=== PATIENT | female | born 1985 | race Caucasian/White ===

== ENCOUNTER 2017-01-10 15:19 | Inpatient (IN) | payer OTHER ==
[~2017-01-10] VITALS: Ht 165.1 cm; Wt 88.0 kg
[~2017-01-10 15:19] MED LIST: IBUP600 PO; OXYC1SOL5 PO; PERI8.6T PO
[2017-03-20] VITALS (25 sets, daily range): BP systolic 94–111; BP diastolic 56–71; PULSE 56–78; RESP 15–20; TEMP 95.9–97.9; O2SAT 96–97
[2017-03-20] MEDS ORDERED: ceFAZolin 2 GM PREMIX 50 ML IV SCH (06:30)
[2017-03-20] MEDS ORDERED: CITRIC ACID-SODIUM CITRATE LIQ 30 ML UDC PO SCH (06:30)
[2017-03-20] MEDS ORDERED: ceFAZolin 1,000 MG/NS 100 ML IV SCH ×2 (06:30)
[2017-03-20] MEDS ORDERED: LACTATED RINGER'S 1000 ML IV ONE (06:30)
[2017-03-20] MEDS ORDERED: LACTATED RINGER'S 1000 ML IV SCH (06:30)
[2017-03-20] MEDS ORDERED: LIDOCAINE HCL 1% 50 ML VIAL ONE (06:40)
[2017-03-20 06:52] LABS: AUTOMATED NEUTROPHIL # 3.6 TH/MM3 (1.8-7.7); BASOPHIL % 0.5 % (0.0-2.0); EOSINOPHIL # 0.1 TH/MM3 (0-0.4); EOSINOPHIL % 1.3 % (0.0-4.0); HEMATOCRIT 30.6 % (35.0-46.0); HEMO FLAGS DIFF FINAL; LYMPH % 26.5 % (9.0-44.0); LYMPHOCYTE # 1.5 TH/MM3 (1.0-4.8); MEAN CELL VOLUME 81.7 FL (80.0-100.0); MEAN CORPUSCULAR HEMOGLOBIN 28.5 PG (27.0-34.0); MEAN CORPUSCULAR HGB CONC 34.9 % (32.0-36.0); MONO % 8.6 % (0.0-8.0); NEUT % 63.1 % (16.0-70.0); PLATELET COUNT 148 TH/MM3 (150-450); RED BLOOD COUNT 3.75 MIL/MM3 (4.00-5.30); RED CELL DISTRIBUTION WIDTH 14.9 % (11.6-17.2); WHITE BLOOD COUNT 5.7 TH/MM3 (4.0-11.0)
[2017-03-20] MEDS ORDERED: IBUP-232 PO (07:17)
[2017-03-20] MEDS ORDERED: PERC5TAB12 PO (07:17)
[2017-03-20] MEDS ORDERED: PERI8.6T PO (07:17)
--- NOTE | 2017-03-20 07:28 | HHI.HP ---
HPI Chief Complaint scheduled repeat at term Date Seen: Mar 20, 2017 Time Seen: 07:10 Travel History International Travel<30 Days: No Contact w/Intl Traveler<30Days: No Known Affected Area: No History of Present Illness HPI 31 yo with IUP at 39wks here today for scheduled repeat at term. no complications of , pain 1/10 pressure, no VB, LOF, or ctx. + FM. Para: 1 : 2 Miscarriage: 0 : 0 History Past Medical History Narrative Medical denies Obstetric History Obstetric History G1 = FT CD FTP 10/2015 Past Surgical History Narrative Surgical x 1 (10/2015) Family History Family History: Negative Social History Alcohol Use: No Tobacco Use: No Substance Abuse: No Allergies-Medications (Allergen,Severity, Reaction): Coded Allergies: Dynacin (Verified Allergy, Mild, RASH, 11/02/15) Uncoded Allergies: NICKEL (Allergy, Mild, 11/02/15) SKIN IRRATION Home Meds Active Scripts Sennosides-Docusate Sodium (Sylvia-Colace)8.6-50 Mg Tab1 Tab PO BID PRN ( Constipation) #28 TAB Ref 1 Prov:Elena Valenzuela MD 03/20/17 Oxycodone-Acetaminophen (Percocet)5-325 mg Tab1 Tab PO Q6H PRN (PAIN) #30 TAB Ref 0 Prov:Elena Valenzuela MD 03/20/17 Ibuprofen 600 Mg Ops494 Mg PO Q6H PRN (PAIN) #30 TAB Ref 1 Prov:Elena Valenzuela MD 03/20/17 Discontinued Scripts Sennosides-Docusate Sodium (Sylvia-Colace 8.6-50 mg)1 Tab Tab2 Tab PO Q12H #30 TAB Prov:Teri Hollingsworth MD 11/04/15 Oxycodone W/ Acetaminophen (Oxycodone/Acetaminophen 5-325 mg/5Ml)5 mg/325 mg Tab1 Tab PO Q4H PRN (PAIN SCALE 3 TO 5) #30 TAB Prov:Teri Hollingsworth MD 11/04/15 Ibuprofen (Motrin 600 Mg Tab)600 Mg Ksq021 Mg PO Q6H PRN ( CRAMPING) # 30 TAB Prov:Teri Hollingsworth MD 11/04/15 Review of Systems General / Constitutional: Weight Gain (c/w ), No: Fever, Chills, Other Eyes: No: Diploplia, Blurred Vision, Visual changes, Pain, Photophobia HENT: No: Headaches, Vertigo, Lightheadedness Cardiovascular: No: Irregular Rhythm, Chest Pain or Discomfort, Palpitations, Tachycardia, Syncope, Varicosities, Edema, Cyanosis Respiratory: No: Cough, Short of Breath, Other Gastrointestinal: No: Nausea, Vomiting, Diarrhea Genitourinary: Pelvic Pain (pressure), No: Decreased Urinary Output, Oliguria Musculoskeletal: No: Limited ROM, Weakness, Cramping, Edema, Pain Skin: No Rash, No Itching, No Dryness, No Lumps, No Change in Pigmentation, No Change in Nails, No Alopecia, No Lesions Neurologic: No: Weakness, Dizziness, Syncope, Focal Abnormalities, Coordination Problem, Headache, Slurred Speech, Seizures Psychiatric: No: Depression, Suicidal Ideations, Homicidal Ideation Endocrine: No: Heat Intolerance, Cold Intolerance, Polydipsia, Polyuria, Other Physical Exam Vital Signs Date Time Temp Pulse Resp B/P Pulse Ox O2 Delivery O2 Flow Rate FiO2 03/20/17 06:21 97.9 18 03/20/17 06:20 78 108/71 Narrative GENERAL: Well-nourished, well-developed patient. SKIN: Warm and dry. HEAD: Normocephalic and atraumatic. EYES: No scleral icterus. No injection or drainage. ENT: No nasal drainage noted. Mucous membranes pink. Airway patent. NECK: Supple, trachea midline. No JVD. CARDIOVASCULAR: Regular rate and rhythm without murmurs, gallops, or rubs. RESPIRATORY: Breath sounds equal bilaterally. No accessory muscle use. BREASTS: deferred. ABDOMEN/GI: Abdomen soft, non-tender, bowel sounds present, no rebound, no guarding Gravid to [39] weeks size Fundal Height: [37] GENITOURINARY: deferred FHT's: Category: I tracing EXTREMITIES: No cyanosis or edema. BACK: Nontender without obvious deformity. No CVA tenderness. NEUROLOGICAL: Awake and alert. Motor and sensory grossly within normal limits. Five out of 5 muscle strength in all muscle groups. Normal speech. Data Data Vital Signs Reviewed: Yes Orders Admit To Inpatient (03/20/17 ) Vital Signs (Adult) .ON ADMISSION (03/20/17 06:05) Activity Oob Ad Genoveva (03/20/17 06:05) Heart (03/20/17 06:05) Urinary Catheter Management JARROD.Q8H (03/20/17 06:05) ^ Preps (03/20/17 06:05) Scd / Anish / Foot Pump JARROD.QSHIFT (03/20/17 06:05) ^ Ultrasound For Locatio (03/20/17 06:05) Diet Npo (03/20/17 Breakfast) Type And Screen (03/20/17 06:05) Complete Blood Count With Diff (03/20/17 06:05) Urinalysis - C+S If Indicated (03/20/17 06:05) Lactated Ringer's 1000 Ml Inj (Lr 1000 M (03/20/17 06:30) Lactated Ringer's 1000 Ml Inj (Lr 1000 M (03/20/17 06:30) Citric Acid-Sodium Citrate Liq (Bicitra (03/20/17 06:30) Cefazolin 2 Gm Premix (Ancef 2 Gm Premix (03/20/17 06:30) Lidocaine 1% Inj (50 Ml) (Xylocaine 1% I (03/20/17 06:40) Labs Laboratory Tests Test 03/20/17 06:30 White Blood Count 5.7 Red Blood Count 3.75 Hemoglobin 10.7 Hematocrit 30.6 Mean Corpuscular Volume 81.7 Mean Corpuscular Hemoglobin 28.5 Mean Corpuscular Hemoglobin 34.9 Concent Red Cell Distribution Width 14.9 Platelet Count 148 Mean Platelet Volume 9.9 Neutrophils (%) (Auto) 63.1 Lymphocytes (%) (Auto) 26.5 Monocytes (%) (Auto) 8.6 Eosinophils (%) (Auto) 1.3 Basophils (%) (Auto) 0.5 Neutrophils # (Auto) 3.6 Lymphocytes # (Auto) 1.5 Monocytes # (Auto) 0.5 Eosinophils # (Auto) 0.1 Basophils # (Auto) 0.0 CBC Comment DIFF FINAL Differential Comment Blood Type A POSITIVE Assessment/Plan Problem List: (1) Term (2) History of delivery, currently Assessment and Plan 31 yo with IUP at 39 wks by 1st trimester sono, presents for scheduled repeat 1) repeat : r/b/a of procedure d/w pt, consents signed, AQA 2) status: vertex, male, no complications throughout Discharge Planning routine 2-3 days postop Elena Valenzuela MD Mar 20, 2017 07:28
[2017-03-20 07:31] LABS: BACTERIA, URINE OCC /hpf; BLOOD, URINE NEG (NEG); COMMENT (UR) CULTURE INDICATED; CULTURE IF INDICATED CULTURE INDICATED; GLUCOSE,URINE NEG (NEG); KETONE, URINE NEG (NEG); MUCUS URINE FEW /lpf (OCC); NITRITE,URINE NEG (NEG); SQUAMOUS EPITHELIAL CELL URINE 18 /hpf (0-5); URINE COLOR YELLOW (YELLW/STRAW)
[2017-03-20] MEDS ORDERED: OXYTOCIN 10 UNIT/ML AMP ONE (07:34)
--- NOTE | 2017-03-20 08:18 | PD.OB.DELI ---
Procedure Note Section Procedure Pre Op Diagnosis: (1) Term (2) History of delivery, currently Post Op Diagnosis: (1) Term (2) S/P repeat low transverse Performed by Elena Valenzuela Procedure: Repeat Low Transverse Sec Indication for delivery: Desired elective repeat Informed consent obtained: For anesthesia, For procedure Confirmed correct: Patient, Procedure, Site, Time-out taken Anesthesia: Spinal Medication prior to procedure: As documented in eMAR Monitoring during procedure: Blood pressure monitoring, athletic monitor, Pulse oximetry Urinary catheter: Inserted using sterile technique, To dependent drainage, ml urine output (50) Sterile preparation: Duraprep, In usual fashion, With drapes to expose affected area Position: Supine with wedge to right side Operative Features Skin Incision: Pfannenstiel Uterine Incision: Low transverse w/knife / scissors Membranes Ruptured: Artificially, Amount of liquid (moderate), Appearance of fluid (clear) Presentation: Occiput anterior Delivery of : Uneventful : Male One Minute : 9 Five Minute : 9 Weight: 7#11oz Status of : Viable, Cord blood, Nursery present Placenta delivered: Intact Medications: Antibiotics (standard preop Ancef 2g) Estimated blood loss: 600 mL Procedure tolerated: Well Maternal Condition: Stable Condition: Stable Procedure in detail see dictated op note Elena Valenzuela MD Mar 20, 2017 08:18
[2017-03-20] MEDS ORDERED: MORPHINE SULFATE PF 5 MG/10 ML VIAL ONE (08:20)
[2017-03-20] MEDS ORDERED: ACETAMINOPHEN 1000 MG/100 ML VIAL IV ONE ×2 (08:20→08:30)
[2017-03-20] MEDS ORDERED: ONDANSETRON HCL 4 MG/2 ML VIAL ONE (08:20)
--- NOTE | 2017-03-20 08:25 | HHI.DCPOC ---
Discharge Care Plan Diagnosis: (1) S/P repeat low transverse Your Health Problems Are: delivery Report Symptoms to Your Doctor -Temperature above 100.5 degrees -Redness, of incision or excessive or foul smelling drainage -Unusual pain or calf pain -Increased vaginal bleeding -Painful or difficulty urinating -Feelings of extreme sadness or anxiety after 2 weeks Goals to Promote Your Health * To prevent worsening of your condition and complications * To maintain your health at the optimal level Directions to Meet Your Goals Take your medications as prescribed Follow your dietary instruction Follow activity as directed Ensure plenty of rest for recovery Drink fluids for hydration Keep your appointments as scheduled Take your immunizations and boosters as scheduled If your symptoms worsen call your PCP, if no PCP go to Urgent Care Center or Emergency Room Smoking is Dangerous to Your Health. Avoid second hand smoke Call the 24-hour crisis hotline for domestic abuse at Elena Valenzuela MD Mar 20, 2017 08:25
[2017-03-20] MEDS ORDERED: oxyCODONE/ACETAMINOPHEN 5 MG/325 MG TAB PO PRN (08:30)
[2017-03-20] MEDS ORDERED: SODIUM CHLORIDE 0.9% FLUSH 10 ML FLUSH IV FLUSH PRN (08:30)
[2017-03-20] MEDS ORDERED: SIMETHICONE 80 MG CHEWABLE TAB PO PRN (08:30)
[2017-03-20] MEDS ORDERED: ACETAMINOPHEN 325 MG TAB PO PRN (08:30)
[2017-03-20] MEDS ORDERED: KETOROLAC TROMETHAMINE 60 MG/2 ML (IM) VIAL IM PRN (08:30)
[2017-03-20] MEDS ORDERED: OXYTOCIN 30 UNITS-500ML PREMIX 500 ML IV ONE (08:30)
[2017-03-20] MEDS ORDERED: ZOLPIDEM TARTRATE 5 MG TAB PO PRN (08:30)
[2017-03-20] MEDS ORDERED: ONDANSETRON HCL 4 MG/2 ML VIAL IV PUSH PRN (08:30)
[2017-03-20] MEDS: SODIUM CHLORIDE 0.9% FLUSH 10 ML FLUSH IV FLUSH SCH (09:00)
[2017-03-20] MEDS ORDERED: *Lactated Ringer's INJ 1,000 ML IV ONE (09:00)
[2017-03-20] MEDS ORDERED: OXYTOCIN 30 UNITS-500ML PREMIX 500 ML ONE (10:10)
[2017-03-20] MEDS ORDERED: EPIDURAL-NO SYSTEMIC NARCOTICS PRN (12:00)
[2017-03-20] MEDS ORDERED: EPIDURAL-NALOXONE HCL 0.4 MG/ML AMP IV PRN (12:00)
[2017-03-20] MEDS ORDERED: EPIDURAL-DO NOT ADMINISTER ANTICOAGULANTS PRN (12:00)
[2017-03-20] MEDS ORDERED: EPIDURAL-DIPHENHYDRAMINE HCL 50 MG/ML VIAL IV PUSH PRN (12:00)
[2017-03-20] MEDS ORDERED: EPIDURAL-DIPHENHYDRAMINE HCL 50 MG CAP PO PRN (12:00)
[2017-03-20] MEDS ORDERED: LACTATED RINGER'S 1000 ML INJ 1,000 ML IV SCH (13:20)
[2017-03-20] MEDS ORDERED: OXYTOCIN 30 UNITS-500ML PREMIX 500 ML IV PRN (18:30)
[2017-03-20] MEDS: DOCUSATE SODIUM 50 MG/SENNA 8.6 MG TAB PO PRN (22:20)
[2017-03-20] MEDS: oxyCODONE/ACETAMINOPHEN 5 MG/325 MG TAB PO PRN (22:21)
[2017-03-20] MEDS: IBUPROFEN 600 MG TAB PO PRN (22:21)
[2017-03-21] VITALS: BP 88/57; PULSE 57; RESP 18; TEMP 98.1
[2017-03-21 04:00] VITALS: BP 93/53; PULSE 62; RESP 18; TEMP 98.4
[2017-03-21 05:53] LABS: AUTOMATED NEUTROPHIL # 5.1 TH/MM3 (1.8-7.7); BASOPHIL % 0.3 % (0.0-2.0); EOSINOPHIL # 0.1 TH/MM3 (0-0.4); EOSINOPHIL % 1.1 % (0.0-4.0); HEMO FLAGS DIFF FINAL; LYMPH % 23.4 % (9.0-44.0); LYMPHOCYTE # 1.8 TH/MM3 (1.0-4.8); MEAN CELL VOLUME 81.7 FL (80.0-100.0); MEAN CORPUSCULAR HGB CONC 35.5 % (32.0-36.0); NEUT % 68.2 % (16.0-70.0); PLATELET COUNT 111 TH/MM3 (150-450); RED BLOOD COUNT 2.94 MIL/MM3 (4.00-5.30); WHITE BLOOD COUNT 7.5 TH/MM3 (4.0-11.0)
[2017-03-21 08:15] VITALS: BP_SYST 80; BP_SYST 97; BP_DIAS 47; BP_DIAS 68; PULSE 65; PULSE 80; RESP 16; TEMP 98.5
[2017-03-21] MEDS: IBUPROFEN 600 MG TAB PO PRN ×3 (08:31→21:56)
[2017-03-21] MEDS: oxyCODONE/ACETAMINOPHEN 5 MG/325 MG TAB PO PRN ×3 (08:31→21:57)
[2017-03-21 10:00] VITALS: BP 93/54
--- NOTE | 2017-03-21 10:07 | HHI.OB ---
Subjective Post Operative Day: 1 Remarks POD#1, Doing well, stable Objective Vitals/I&O Vital Signs Date Time Temp Pulse Resp B/P Pulse Ox O2 Delivery O2 Flow Rate FiO2 03/21/17 08:15 80/47 03/21/17 08:15 98.5 80 16 97/68 03/21/17 08:15 65 03/21/17 04:00 98.4 62 18 93/53 03/21/17 00:00 57 88/57 03/21/17 00:00 98.1 18 03/20/17 20:00 97 03/20/17 19:23 97.6 57 17 94/60 03/20/17 16:24 97.6 57 16 106/64 03/20/17 11:55 58 109/69 03/20/17 11:55 97.5 16 03/20/17 11:22 97.4 03/20/17 11:16 64 18 105/60 97 03/20/17 11:04 97.4 03/20/17 11:02 60 18 98/57 96 03/20/17 10:47 96.3 71 16 100/57 96 03/20/17 10:30 66 20 111/58 97 03/20/17 10:22 68 18 96 03/20/17 10:16 102/62 03/20/17 10:10 97 Result Diagram: 03/21/17 0512 Objective Remarks GENERAL: Well-nourished, well-developed patient. CARDIOVASCULAR: Regular rate and rhythm without murmurs, gallops, or rubs. RESPIRATORY: Breath sounds equal bilaterally. No accessory muscle use. ABDOMEN/GI: Abdomen soft, non-tender, bowel sounds present. Incision: Clean, dry and intact. Fundus: Firm, non-tender at umbilicus. GENITOURINARY: Light to moderate bleeding. EXTREMITIES: No cyanosis or edema, non-tender, without signs of DVT. Medications and IVs Current Medications Medications (Trade) Dose Ordered Sig/Eunice Route Start Time Stop Time Status Last Admin (NS Flush) 2 ml BID IV FLUSH 03/20/17 09:00 (NS Flush) 2 ml UNSCH PRN IV FLUSH 03/20/17 08:30 (Mylicon Chew) 80 mg QID PRN PO 03/20/17 08:30 (Tylenol) 650 mg Q6H PRN PO 03/20/17 08:30 (Motrin) 600 mg Q6H PRN PO 03/20/17 08:30 03/21/17 08:31 (Percocet 5-325 Mg) 1 tab Q4H PRN PO 03/20/17 08:30 03/21/17 08:31 (Percocet 5-325 Mg) 2 tab Q4H PRN PO 03/20/17 08:30 (Sylvia-Colace) 2 tab Q12H PRN PO 03/20/17 08:30 03/20/17 22:20 (Ambien) 5 mg HS PRN PO 03/20/17 08:30 (M-M-R Ii Inj) 0.5 ml ONCE ONCE SQ 03/21/17 16:00 03/21/17 16:01 (Boostrix Inj) 0.5 ml ONCE ONCE IM 03/21/17 16:00 03/21/17 16:01 (Zofran Inj) 4 mg Q6H PRN IV PUSH 03/20/17 08:30 03/20/17 14:19 Miscellaneous Information NO SYSTEMIC NARCOTICS TO BE GIVEN FO... UNSCH PRN .XX 03/20/17 12:00 03/21/17 11:59 (Narcan Inj) 0.4 mg UNSCH PRN IV 03/20/17 12:00 03/21/17 11:59 (Benadryl Inj) 25 mg Q6H PRN IV PUSH 03/20/17 12:00 03/21/17 11:59 03/20/17 14:18 (Benadryl) 50 mg Q6H PRN PO 03/20/17 12:00 03/21/17 11:59 Miscellaneous Information ALL NURSING DEPARTMENTS UNSCH PRN .XX 03/20/17 12:00 03/21/17 11:59 Assessment/Plan Problem List: (1) Term (2) History of delivery, currently Assessment and Plan 31 yo with IUP at 39 wks by 1st trimester sono, presents for scheduled repeat 1) repeat , POD#1, stable 2) status: vertex, male, no complications throughout 3) plan discharge day #2-3 Discharge Planning routine 2-3 days postop Attending Attestation seen by Alexandre Ley MD Mar 21, 2017 10:07
[2017-03-21] MEDS: DOCUSATE SODIUM 50 MG/SENNA 8.6 MG TAB PO PRN (15:54)
[2017-03-21] MEDS ORDERED: DIPHTH/TETANUS/ACEL PERTUSSIS (BOOSTER) 0.5 ML VIAL/PFS IM ONE (16:00)
[2017-03-21] MEDS ORDERED: MEASLES, MUMPS, RUBELLA VACCINE 0.5 ML VIAL SQ ONE (16:00)
[2017-03-21 20:00] VITALS: BP 91/55; PULSE 60; RESP 18; TEMP 97.5
[2017-03-21] MEDS: SODIUM CHLORIDE 0.9% FLUSH 10 ML FLUSH IV FLUSH SCH (21:00)
[2017-03-22] MEDS: IBUPROFEN 600 MG TAB PO PRN ×2 (04:01→10:01)
[2017-03-22] MEDS: DOCUSATE SODIUM 50 MG/SENNA 8.6 MG TAB PO PRN (04:01)
[2017-03-22] MEDS: oxyCODONE/ACETAMINOPHEN 5 MG/325 MG TAB PO PRN ×2 (04:01→10:01)
--- NOTE | 2017-03-22 07:19 | MP ---
cc: BRIT ROCHA M.D. DATE OF SURGERY 03/20/2017 PREOPERATIVE DIAGNOSIS 1. Mckeon intrauterine at 39 weeks 2. History of delivery for elective desired repeat. POSTOPERATIVE DIAGNOSIS 1. Mckeon intrauterine at 39 weeks 2. History of delivery for elective desired repeat. 3. Postop day number zero. INDICATIONS Erika Saucedo is a 31-year-old 2, now para 2-0-0-2 who was seen and evaluated throughout her with history significant for recent 16 months ago. Due to this history, she was not a good candidate for and desired for elective repeat . She was scheduled at term. PROCEDURE PERFORMED Repeat low transverse section. SURGEON Brit Rocha MD TYPE OF ANESTHESIA Spinal ESTIMATED BLOOD LOSS 600 Ml IV FLUID REPLACEMENT 1800 mL URINE OUTPUT 50 mL of clear urine draining into the Arrington bag at the end of the procedure. OPERATIVE FINDINGS Include a vigorous viable male in vertex position with 's of 9 and 9 and weight of 7 pounds 11 ounces. Amniotic fluid was clear. Placenta was intact. Uterus was unable to be exteriorized due to some scar tissue from the anterior fundal uterine wall to the rectus muscles, otherwise the lower uterine segment was intact with no scar tissue. SPECIMENS None PROPHYLAXIS Ancef 2 grams IV was given preoperatively and SCD's were on and functioning throughout the entire case. PROCEDURE IN DETAIL After reviewing the informed consent, the patient was taken to the operating suite where a time-out was performed to identify the patient, planned procedure and any known allergies to drugs or drug products. The patient was then placed in sitting up position and spinal anesthesia was administered without difficulty and found to be adequate. The patient was then laid in dorsal supine position with a bump under her right side and the abdomen and perineum were prepped and draped in normal sterile fashion. A Arrington catheter was placed using sterile technique. Attention was turned abdominally where a scalpel was used to make a Pfannenstiel skin incision in the same places as her previous Pfannenstiel. The incision was carried down to the underlying layer of fascia with the Bovie and the fascia was incised in the midline. Incision was extended laterally with sharp dissection using Ward scissors. The superior aspect of the fascial incision was elevated with Ronal clamps and rectus muscles were dissected off sharply with Ward scissors. Kochers were then moved to the inferior aspect of the fascial incision and again Ward scissors were used to sharply dissect these off of the fascia. The rectus muscles were in the midline. Peritoneum was identified and entered bluntly. Incision was extended superiorly and inferiorly. Bladder blade was placed. A bladder flap was not made. A low transverse uterine incision was made with a scalpel. Incision was extended bluntly. The amniotic sac was ruptured with clear fluid noted. The infant's head was grasped and elevated out through the incision. With gentle maneuvering, the rest of the 's body was easily delivered. The was immediately crying upon delivery. The cord was doubly clamped and cut and infant was handed off to the awaiting nursery staff. Cord blood sample was taken. Placenta was delivered spontaneously with gentle cord traction and fundal massage. The uterus was then cleared of all debris with sterile moist lap sponges. The hysterotomy was repaired in a double layer with #1 chromic, first in a running locked layer then an imbricating layer. Irrigation with suction was performed. The peritoneum was then closed in a running layer with 2-0 chromic. Fascia was closed in a running layer with #1 Vicryl. The subcutaneous tissue was irrigated copiously with warm sterile saline and excellent hemostasis was noted. Skin was closed in subcuticular fashion with 4-0 Monocryl. Skin was cleaned and dried. Steri-Strips were placed as well as a standard dressing. The procedure concluded at this point. The patient tolerated procedure well without complication. DISPOSITION The patient's estimated length of stay is [id number] postop days. status is nursery status. MD RIOS Acosta/BHANU /8:44 AM /7:11 AM JUANI
[2017-03-22 07:35] VITALS: BP 103/67; PULSE 58; RESP 18; TEMP 97.5
--- NOTE | 2017-03-22 08:43 | HHI.OB ---
Subjective Post Operative Day: 2 Remarks up to bathroom, Ht=24, plts =111 Objective Vitals/I&O Vital Signs Date Time Temp Pulse Resp B/P Pulse Ox O2 Delivery O2 Flow Rate FiO2 03/22/17 05:01 16 03/22/17 05:01 16 03/21/17 20:00 97.5 03/21/17 20:00 60 18 91/55 03/21/17 10:00 93/54 Result Diagram: 03/21/17 0512 Objective Remarks GENERAL: Well-nourished, well-developed patient. CARDIOVASCULAR: Regular rate and rhythm without murmurs, gallops, or rubs. RESPIRATORY: Breath sounds equal bilaterally. No accessory muscle use. ABDOMEN/GI: Abdomen soft, non-tender, bowel sounds present. Incision: Clean, dry and intact. Fundus: Firm, non-tender at umbilicus. GENITOURINARY: Light to moderate bleeding. EXTREMITIES: No cyanosis or edema, non-tender, without signs of DVT. Medications and IVs Current Medications Medications (Trade) Dose Ordered Sig/Eunice Route Start Time Stop Time Status Last Admin (NS Flush) 2 ml BID IV FLUSH 03/20/17 09:00 (NS Flush) 2 ml UNSCH PRN IV FLUSH 03/20/17 08:30 (Mylicon Chew) 80 mg QID PRN PO 03/20/17 08:30 (Tylenol) 650 mg Q6H PRN PO 03/20/17 08:30 (Motrin) 600 mg Q6H PRN PO 03/20/17 08:30 03/22/17 04:01 (Percocet 5-325 Mg) 1 tab Q4H PRN PO 03/20/17 08:30 03/22/17 04:01 (Percocet 5-325 Mg) 2 tab Q4H PRN PO 03/20/17 08:30 (Sylvia-Colace) 2 tab Q12H PRN PO 03/20/17 08:30 03/22/17 04:01 (Ambien) 5 mg HS PRN PO 03/20/17 08:30 (Zofran Inj) 4 mg Q6H PRN IV PUSH 03/20/17 08:30 03/20/17 14:19 Assessment/Plan Problem List: (1) Term (2) History of delivery, currently Assessment and Plan 31 yo with IUP at 39 wks by 1st trimester sono, presents for scheduled repeat 1) repeat , POD#2, stable 2) status: vertex, male, no complications throughout 3) plan discharge day #2-3 Discharge Planning routine 2-3 days postop Attending Attestation seen by Edna Gayle MD Mar 22, 2017 08:43
== END 2017-03-22 15:07 | disposition home or self-care (01) | DRG 766 ==
LOC: H2EB 03-20 06:03 → H1EA 03-20 11:43
PROVIDERS: ADMIT Obstetrics & Gynecology; ATTEND Obstetrics & Gynecology
PROC: 10D00Z1 Extraction of Products of Conception, Low, Open Approach (ICD-10-PCS; principal; 2017-03-20)
DX: O34.211 Maternal care for low transverse scar from previous cesarean delivery (principal); Z37.0 Single live birth; Z3A.39 39 weeks gestation of pregnancy
CPT/HCPCS: 59025; 81001; 85025; 86850; 86900; 86901; 87086; J0131; J0690; J1200; J2274; J2405; J2590; J7120